=== PATIENT | male | born 1960 | race Caucasian/White ===

== ENCOUNTER 2018-01-18 22:07 | Inpatient (IN) | payer OTHER ==
[2018-01-19] MEDS ORDERED: LORAZEPAM 2 MG INJ IV
[2018-01-19] MEDS ORDERED: morphine 2 MG INJ IV
[2018-01-19] MEDS: hydrALAzine 20 MG INJ IV ×3 (00:36→23:45)
[2018-01-19 01:01] LABS: ADD MAN DIFF? NO
[2018-01-19 01:03] LABS: BASOPHIL # 0.1 10^3/ul (0.0-0.1); BASOPHILS % 0.7 % (0.0-2.0); EOSINOPHILS # 0.3 10^3/ul (0.0-0.5); EOSINOPHILS % 2.6 % (0.0-7.0); HEMATOCRIT 43.5 % (42.0-52.0); HEMOGLOBIN 14.5 g/dl (14.0-18.0); LYMPHOCYTES # 2.8 10^3/ul (0.8-2.9); LYMPHOCYTES % 25.7 % (15.0-51.0); MEAN CORPUSCULAR HEMOGLOBIN 28.4 pg (29.0-33.0); MEAN CORPUSCULAR HGB CONC 33.3 g/dl (32.0-37.0); MEAN CORPUSCULAR VOLUME 85.3 fl (82.0-101.0); MEAN PLATELET VOLUME 10.7 fl (7.4-10.4); MONOCYTE # 0.9 10^3/ul (0.3-0.9); MONOCYTES % 8.7 % (0.0-11.0); NEUTROPHIL # 6.7 10^3/ul (1.6-7.5); NEUTROPHILS % 62.1 % (39.0-77.0); PLATELET COUNT 234 10^3/UL (140-415); RED CELL DISTRIBUTION WIDTH 13.1 % (11.5-14.5)
[2018-01-19 01:03] LABS: WHITE BLOOD COUNT 10.7 10^3/ul (4.8-10.8)
[2018-01-19] MEDS: ACCU-CHEK XX (01:13)
[2018-01-19 01:40] LABS: ALANINE AMINOTRANSFERASE 30 IU/L (13-69); ALBUMIN 4.1 g/dl (3.3-4.9); ALBUMIN/GLOBULIN RATIO 1.24; ALKALINE PHOSPHATASE 119 IU/L (42-121); ANION GAP 15 (8-16); ASPARTATE AMINO TRANSFERASE 18 IU/L (15-46); BILIRUBIN,INDIRECT 0.4 mg/dl (0-1.1); BILIRUBIN,TOTAL 0.4 mg/dl (0.2-1.3); BLOOD UREA NITROGEN 5 mg/dl (7-20); CALCIUM 9.4 mg/dl (8.4-10.2); CARBON DIOXIDE 25 mmol/L (21-31); CHLORIDE 106 mmol/L (97-110); CHOL/HDL RATIO 5.6 RATIO; CHOLESTEROL 216 mg/dl (100-200); CREATININE 0.72 mg/dl (0.61-1.24); GLUCOSE 152 mg/dl (70-220); HDL CHOLESTEROL 38 mg/dl (28-71); LDL CHOLESTEROL,CALCULATED 148 mg/dl; PHOSPHORUS 3.5 mg/dl (2.5-4.9); POTASSIUM 3.6 mmol/L (3.5-5.1); SODIUM 142 mmol/L (135-144); TOTAL PROTEIN 7.4 g/dl (6.1-8.1); TRIGLYCERIDES 152 mg/dl (0-149)
[2018-01-19 02:49] LABS: HEMOGLOBIN A1C 8.9 % (0-5.9)
[2018-01-19] MEDS: CALCIUM CARBONATE 500 MG CHEW TAB PO ×3 (03:48→16:13)
[2018-01-19] MEDS: INSULIN ASPART [NOVOLOG] 3 ML PEN SC ×4 (08:25→21:50)
[2018-01-19] MEDS: LEVETIRACETAM 500 MG TAB PO ×3 (08:25→21:48)
[2018-01-19] MEDS: ONDANSETRON 4 MG INJ IV (12:17)
[2018-01-19] MEDS ORDERED: GLUCAGON 1 MG INJ IM ×2 (12:30)
[2018-01-19] MEDS ORDERED: DEXTROSE 50% 50 ML SYRINGE IV ×4 (12:30)
[2018-01-19] MEDS ORDERED: GLUCOSE GEL 15 GRAM TUBE BUCCAL ×2 (12:30)
[2018-01-19] MEDS ORDERED: GLUCOSE GEL 15 GRAM TUBE PO ×4 (12:30)
[2018-01-19] MEDS: PHENOBARBITAL 32.4 MG TAB PO ×2 (12:38→21:48)
[2018-01-19] MEDS: AMLODIPINE 10 MG TAB PO (12:40)
[2018-01-19 18:09] LABS: ADD UMIC NO; UR ASCORBIC ACID NEGATIVE (NEGATIVE); UR BILIRUBIN (Dip) NEGATIVE (NEGATIVE); UR BLOOD (Dip) NEGATIVE (NEGATIVE); UR CLARITY CLEAR (CLEAR); UR COLOR STRAW (YELLOW); UR GLUCOSE (Dip) 2+ mg/dL (NEGATIVE); UR KETONES (Dip) TRACE mg/dL (NEGATIVE); UR LEUKOCYTE ESTERASE (Dip) NEGATIVE Leu/ul (NEGATIVE); UR NITRITE (Dip) NEGATIVE (NEGATIVE); UR SPECIFIC GRAVITY (Dip) 1.004 (1.003-1.030); UR TOTAL PROTEIN (Dip) NEGATIVE (NEGATIVE); UR UROBILINOGEN (Dip) NEGATIVE (NEGATIVE)
[2018-01-19] MEDS ORDERED: INSULIN GLARGINE [LANtus] 3 ML PEN SC (20:00)
[2018-01-19] MEDS: ATORVASTATIN 20 MG TAB PO (21:48)
[2018-01-19] MEDS: MONTELUKAST 10 MG TAB PO (21:49)
[2018-01-19] MEDS: INSULIN GLARGINE [LANtus] 3 ML PEN SC (21:54)
[2018-01-20] MEDS: ACCU-CHEK XX (02:00)
[2018-01-20] MEDS: hydrALAzine 20 MG INJ IV (03:24)
[2018-01-20 06:07] LABS: ADD MAN DIFF? NO
[2018-01-20 06:08] LABS: WHITE BLOOD COUNT 13.4 10^3/ul (4.8-10.8)
[2018-01-20 06:08] LABS: BASOPHIL # 0.1 10^3/ul (0.0-0.1); BASOPHILS % 0.4 % (0.0-2.0); EOSINOPHILS # 0.2 10^3/ul (0.0-0.5); EOSINOPHILS % 1.6 % (0.0-7.0); HEMATOCRIT 45.8 % (42.0-52.0); HEMOGLOBIN 15.3 g/dl (14.0-18.0); LYMPHOCYTES # 2.7 10^3/ul (0.8-2.9); LYMPHOCYTES % 19.7 % (15.0-51.0); MEAN CORPUSCULAR HEMOGLOBIN 28.2 pg (29.0-33.0); MEAN CORPUSCULAR HGB CONC 33.4 g/dl (32.0-37.0); MEAN CORPUSCULAR VOLUME 84.3 fl (82.0-101.0); MONOCYTE # 1.2 10^3/ul (0.3-0.9); MONOCYTES % 8.6 % (0.0-11.0); NEUTROPHIL # 9.3 10^3/ul (1.6-7.5); NEUTROPHILS % 69.4 % (39.0-77.0); PLATELET COUNT 312 10^3/UL (140-415); RED BLOOD COUNT 5.43 10^6/ul (4.70-6.10); RED CELL DISTRIBUTION WIDTH 12.9 % (11.5-14.5)
[2018-01-20 06:41] LABS: ANION GAP 20 (8-16); BLOOD UREA NITROGEN 8 mg/dl (7-20); CALCIUM 9.6 mg/dl (8.4-10.2); CARBON DIOXIDE 20 mmol/L (21-31); CHLORIDE 102 mmol/L (97-110); CREATININE 0.75 mg/dl (0.61-1.24); GLUCOSE 211 mg/dl (70-220); MAGNESIUM 1.9 mg/dl (1.7-2.5); PHOSPHORUS 4.1 mg/dl (2.5-4.9); POTASSIUM 3.8 mmol/L (3.5-5.1); SODIUM 138 mmol/L (135-144)
[2018-01-20] MEDS: INSULIN ASPART [NOVOLOG] 3 ML PEN SC ×7 (08:04→20:20)
[2018-01-20] MEDS: PHENOBARBITAL 32.4 MG TAB PO ×2 (08:05→20:20)
[2018-01-20] MEDS: AMLODIPINE 10 MG TAB PO (08:06)
[2018-01-20] MEDS: LEVETIRACETAM 500 MG TAB PO ×2 (08:06→20:21)
[2018-01-20] MEDS: INSULIN GLARGINE [LANtus] 3 ML PEN SC (20:19)
[2018-01-20] MEDS: ATORVASTATIN 20 MG TAB PO (20:21)
[2018-01-20] MEDS: MONTELUKAST 10 MG TAB PO (20:21)
[2018-01-20] MEDS: CALCIUM CARBONATE 500 MG CHEW TAB PO (20:29)
[2018-01-20] MEDS: ALBUTEROL/IPRATROPIUM (NEB) 3 ML AMP HHN (23:30)
[2018-01-20] MEDS: METHYLPREDNISOLONE 125 MG INJ IV (23:39)
[2018-01-21] MEDS: ACCU-CHEK XX (02:00)
[2018-01-21 02:42] LABS: PHENOBARBITAL <5.0 mg/L (15.0-40.0)
[2018-01-21] MEDS: INSULIN ASPART [NOVOLOG] 3 ML PEN SC ×7 (08:29→20:17)
[2018-01-21] MEDS: AMLODIPINE 10 MG TAB PO (08:32)
[2018-01-21] MEDS: LEVETIRACETAM 500 MG TAB PO ×2 (08:32→20:16)
[2018-01-21] MEDS: PHENOBARBITAL 32.4 MG TAB PO ×2 (08:32→20:16)
[2018-01-21] MEDS: ATORVASTATIN 20 MG TAB PO (20:16)
[2018-01-21] MEDS: MONTELUKAST 10 MG TAB PO (20:16)
[2018-01-21] MEDS: INSULIN GLARGINE [LANtus] 3 ML PEN SC (20:18)
[2018-01-22] MEDS: ACCU-CHEK XX (02:00)
[2018-01-22 07:05] LABS: BARBITURATES Positive (NEGATIVE)
[2018-01-22 07:11] LABS: AMPHETAMINE/METHAMPHETAMINE Negative (NEGATIVE); BENZODIAZEPINES Negative (NEGATIVE); CANNABINOIDS Positive (NEGATIVE); COCAINE Negative (NEGATIVE); OPIATES Negative (NEGATIVE)
[2018-01-22] MEDS: PHENOBARBITAL 32.4 MG TAB PO ×2 (08:10→20:21)
[2018-01-22] MEDS: AMLODIPINE 10 MG TAB PO (08:10)
[2018-01-22] MEDS: LEVETIRACETAM 500 MG TAB PO ×2 (08:10→20:21)
[2018-01-22] MEDS: INSULIN ASPART [NOVOLOG] 3 ML PEN SC ×7 (08:11→20:25)
[2018-01-22] MEDS: LINAGLIPTIN 5 MG TABLET PO (10:08)
[2018-01-22] MEDS ORDERED: morphine LIQ (10 MG/5 ML) CUP PO (15:00)
[2018-01-22] MEDS: ALBUTEROL/IPRATROPIUM (NEB) 3 ML AMP HHN (16:15)
[2018-01-22] MEDS: ATORVASTATIN 20 MG TAB PO (20:21)
[2018-01-22] MEDS: MONTELUKAST 10 MG TAB PO (20:21)
[2018-01-22] MEDS: INSULIN GLARGINE [LANtus] 3 ML PEN SC (20:26)
[2018-01-23] MEDS: ACCU-CHEK XX (02:45)
[2018-01-23] MEDS: PHENOBARBITAL 32.4 MG TAB PO (08:00)
[2018-01-23] MEDS: INSULIN ASPART [NOVOLOG] 3 ML PEN SC ×4 (08:00→11:59)
[2018-01-23] MEDS: LEVETIRACETAM 500 MG TAB PO (08:01)
[2018-01-23] MEDS: AMLODIPINE 10 MG TAB PO (08:02)
[2018-01-23] MEDS: LINAGLIPTIN 5 MG TABLET PO (08:02)
== END 2018-01-23 12:57 | disposition home or self-care (01) | DRG 101 ==
LOC: PP2 22:07
PROVIDERS: Internal Medicine
DX: R56.1 Post traumatic seizures (principal); I16.0 Hypertensive urgency; J44.9 Chronic obstructive pulmonary disease, unspecified; E78.5 Hyperlipidemia, unspecified; E11.9 Type 2 diabetes mellitus without complications; H54.40 Blindness, one eye, unspecified eye; I10 Essential (primary) hypertension; Z79.4 Long term (current) use of insulin; Z87.820 Personal history of traumatic brain injury
CPT/HCPCS: 70551; 71045; 80048; 80053; 80061; 80184; 80307; 81003; 82962; 83036; 83735; 84100; 85025; 87081; 94640; 94664; 97110; 97162; 97165

== ENCOUNTER 2018-02-08 15:04 | Emergency (ER) | payer OTHER ==
[2018-02-08] MEDS: ACETAMINOPHEN 500 MG TAB PO (18:34)
== END 2018-02-08 21:45 | disposition home or self-care (01) ==
LOC: E/R 21:45
DX: S09.90XA Unspecified injury of head, initial encounter (principal); I10 Essential (primary) hypertension; R51 Headache; Y08.89XA Assault by other specified means, initial encounter; Z79.84 Long term (current) use of oral hypoglycemic drugs
CPT/HCPCS: 70450; 99284-25

== ENCOUNTER 2018-03-20 15:03 | Emergency (ER) | payer OTHER ==
[2018-03-20 15:47] LABS: ADD MAN DIFF? NO
[2018-03-20 15:51] LABS: WHITE BLOOD COUNT 9.3 10^3/ul (4.8-10.8)
[2018-03-20 15:51] LABS: BASOPHIL # 0.1 10^3/ul (0.0-0.1); BASOPHILS % 0.6 % (0.0-2.0); EOSINOPHILS # 0.2 10^3/ul (0.0-0.5); EOSINOPHILS % 2.6 % (0.0-7.0); HEMATOCRIT 38.7 % (42.0-52.0); HEMOGLOBIN 13.3 g/dl (14.0-18.0); LYMPHOCYTES # 2.3 10^3/ul (0.8-2.9); LYMPHOCYTES % 24.5 % (15.0-51.0); MEAN CORPUSCULAR HGB CONC 34.4 g/dl (32.0-37.0); MEAN CORPUSCULAR VOLUME 84.3 fl (82.0-101.0); MEAN PLATELET VOLUME 10.9 fl (7.4-10.4); MONOCYTE # 0.9 10^3/ul (0.3-0.9); MONOCYTES % 9.1 % (0.0-11.0); NEUTROPHIL # 5.8 10^3/ul (1.6-7.5); NEUTROPHILS % 62.8 % (39.0-77.0); PLATELET COUNT 244 10^3/UL (140-415); RED BLOOD COUNT 4.59 10^6/ul (4.70-6.10); RED CELL DISTRIBUTION WIDTH 13.2 % (11.5-14.5)
[2018-03-20] MEDS: SOD CHLORIDE 0.9% 1,000 ML IV (15:58)
[2018-03-20] MEDS: ACETAMINOPHEN 500 MG TAB PO (16:02)
[2018-03-20 16:15] LABS: ANION GAP 12 (8-16); BLOOD UREA NITROGEN 10 mg/dl (7-20); CALCIUM 9.2 mg/dl (8.4-10.2); CARBON DIOXIDE 23 mmol/L (21-31); CHLORIDE 106 mmol/L (97-110); CREATININE 0.91 mg/dl (0.61-1.24); GLUCOSE 175 mg/dl (70-220); POTASSIUM 3.9 mmol/L (3.5-5.1); SODIUM 137 mmol/L (135-144)
[2018-03-20 16:26] LABS: TROPONIN-I < 0.010 ng/ml (0.000-0.120)
[2018-03-20] MEDS: ALBUTEROL HFA 8 GM INHALER INH (17:03)
== END 2018-03-20 18:16 | disposition home or self-care (01) ==
LOC: E/R 15:03
DX: S09.90XA Unspecified injury of head, initial encounter (principal); I10 Essential (primary) hypertension; R55 Syncope and collapse; W01.198A Fall on same level from slipping, tripping and stumbling with subsequent striking against other object, initial encounter; Y92.9 Unspecified place or not applicable; Z79.84 Long term (current) use of oral hypoglycemic drugs
CPT/HCPCS: 36415; 70450; 71045; 80048; 82962; 84484; 85025; 93005; 99285-25

== ENCOUNTER 2018-10-17 12:09 | Inpatient (IN) | payer OTHER ==
[2018-10-17] MEDS ORDERED: LORAZEPAM 2 MG INJ IV (14:00)
[2018-10-17] MEDS ORDERED: ONDANSETRON 4 MG INJ IV (14:00)
[2018-10-17] MEDS ORDERED: NACL 0.9% 3 ML SYG IV (14:00)
[2018-10-17] MEDS ORDERED: GLUCOSE GEL 15 GRAM TUBE BUCCAL (15:00)
[2018-10-17] MEDS ORDERED: GLUCOSE GEL 15 GRAM TUBE PO ×2 (15:00)
[2018-10-17] MEDS ORDERED: GLUCAGON 1 MG INJ IM (15:00)
[2018-10-17] MEDS ORDERED: DEXTROSE 50% 50 ML SYRINGE IV ×2 (15:00)
[2018-10-17] MEDS: LEVETIRACETAM 1000 MG (PMX) 100 ML IVPB (16:10)
[2018-10-17] MEDS: traMADol 50 MG TAB PO ×2 (16:22→23:37)
[2018-10-17 16:34] LABS: ADD MAN DIFF? NO
[2018-10-17 16:39] LABS: BASOPHIL # 0.1 10^3/ul (0.0-0.1); BASOPHILS % 0.5 % (0.0-2.0); EOSINOPHILS # 0.2 10^3/ul (0.0-0.5); EOSINOPHILS % 1.9 % (0.0-7.0); HEMATOCRIT 40.3 % (42.0-52.0); HEMOGLOBIN 13.7 g/dl (14.0-18.0); LYMPHOCYTES # 2.2 10^3/ul (0.8-2.9); LYMPHOCYTES % 21.8 % (15.0-51.0); MEAN CORPUSCULAR HEMOGLOBIN 27.7 pg (29.0-33.0); MEAN CORPUSCULAR VOLUME 81.4 fl (82.0-101.0); MEAN PLATELET VOLUME 10.7 fl (7.4-10.4); MONOCYTE # 0.7 10^3/ul (0.3-0.9); NEUTROPHIL # 6.8 10^3/ul (1.6-7.5); NEUTROPHILS % 68.5 % (39.0-77.0); PLATELET COUNT 254 10^3/UL (140-415); RED BLOOD COUNT 4.95 10^6/ul (4.70-6.10); RED CELL DISTRIBUTION WIDTH 13.8 % (11.5-14.5)
[2018-10-17 16:39] LABS: WHITE BLOOD COUNT 9.9 10^3/ul (4.8-10.8)
[2018-10-17 16:48] LABS: HEMOGLOBIN A1C 8.3 % (0-5.9)
[2018-10-17 17:13] LABS: FREE T4 (FREE THYROXINE) 1.16 ng/dl (0.64-1.79)
[2018-10-17 18:30] LABS: AMPHETAMINE/METHAMPHETAMINE Negative (NEGATIVE); BARBITURATES Negative (NEGATIVE); BENZODIAZEPINES Negative (NEGATIVE); CANNABINOIDS Positive (NEGATIVE); COCAINE Negative (NEGATIVE); OPIATES Negative (NEGATIVE)
[2018-10-17] MEDS: INSULIN ASPART [NOVOLOG] 3 ML PEN SC ×3 (19:00→20:58)
[2018-10-17 19:41] LABS: ALBUMIN/GLOBULIN RATIO 1.39; ANION GAP 12 (5-13); BILIRUBIN,TOTAL 0.5 mg/dl (0.2-1.3); Estimated GFR > 60 mL/min (>60)
[2018-10-17 19:43] LABS: ALANINE AMINOTRANSFERASE 25 IU/L (13-69); ALBUMIN 3.9 g/dl (3.3-4.9); ALKALINE PHOSPHATASE 99 IU/L (42-121); ASPARTATE AMINO TRANSFERASE 18 IU/L (15-46); BILIRUBIN,INDIRECT 0.5 mg/dl (0-1.1); BLOOD UREA NITROGEN 7 mg/dl (7-20); CALCIUM 9.4 mg/dl (8.4-10.2); CARBON DIOXIDE 24 mmol/L (21-31); CHLORIDE 102 mmol/L (97-110); CREATININE 0.76 mg/dl (0.61-1.24); GLUCOSE 173 mg/dl (70-220); MAGNESIUM 2.1 mg/dl (1.7-2.5); PHOSPHORUS 3.2 mg/dl (2.5-4.9); POTASSIUM 3.6 mmol/L (3.5-5.1); SODIUM 138 mmol/L (135-144); TOTAL PROTEIN 6.7 g/dl (6.1-8.1)
[2018-10-17] MEDS: INSULIN GLARGINE [LANTus] (100 UNITS/ML) SYG SC ×2 (20:00→20:56)
[2018-10-17 20:12] LABS: THYROID STIMULATING HORMONE 0.513 MIU/L (0.465-4.680)
[2018-10-17] MEDS: ATORVASTATIN 20 MG TAB PO (20:41)
[2018-10-17] MEDS: PHENOBARBITAL 32.4 MG TAB PO (20:41)
[2018-10-18] MEDS: LEVETIRACETAM 1000 MG (PMX) 100 ML IVPB ×3 (00:50→21:57)
[2018-10-18 04:47] LABS: PHENOBARBITAL <5.0 mg/L (15.0-40.0); THEOPHYLLINE 2.6 mg/L (10.0-20.0)
[2018-10-18 07:21] LABS: ADD MAN DIFF? NO
[2018-10-18 07:28] LABS: BASOPHIL # 0.1 10^3/ul (0.0-0.1); BASOPHILS % 0.5 % (0.0-2.0); EOSINOPHILS # 0.3 10^3/ul (0.0-0.5); EOSINOPHILS % 2.4 % (0.0-7.0); HEMATOCRIT 40.8 % (42.0-52.0); HEMOGLOBIN 13.5 g/dl (14.0-18.0); LYMPHOCYTES # 2.6 10^3/ul (0.8-2.9); MEAN CORPUSCULAR HEMOGLOBIN 27.8 pg (29.0-33.0); MEAN CORPUSCULAR HGB CONC 33.1 g/dl (32.0-37.0); MEAN CORPUSCULAR VOLUME 84.1 fl (82.0-101.0); MONOCYTE # 0.7 10^3/ul (0.3-0.9); MONOCYTES % 6.8 % (0.0-11.0); NEUTROPHIL # 6.7 10^3/ul (1.6-7.5); NEUTROPHILS % 64.9 % (39.0-77.0); PLATELET COUNT 237 10^3/UL (140-415); RED BLOOD COUNT 4.85 10^6/ul (4.70-6.10); RED CELL DISTRIBUTION WIDTH 13.6 % (11.5-14.5)
[2018-10-18 07:28] LABS: WHITE BLOOD COUNT 10.3 10^3/ul (4.8-10.8)
[2018-10-18 07:48] LABS: INR 1.03; PROTIME 13.6 Sec (11.9-14.9); PT RATIO 1.1
[2018-10-18 08:00] LABS: ANION GAP 9 (5-13); BLOOD UREA NITROGEN 8 mg/dl (7-20); CALCIUM 9.3 mg/dl (8.4-10.2); CARBON DIOXIDE 24 mmol/L (21-31); CHLORIDE 106 mmol/L (97-110); CREATININE 0.66 mg/dl (0.61-1.24); Estimated GFR > 60 mL/min (>60); GLUCOSE 156 mg/dl (70-220); POTASSIUM 3.6 mmol/L (3.5-5.1); SODIUM 139 mmol/L (135-144)
[2018-10-18 08:02] LABS: PHOSPHORUS 4.1 mg/dl (2.5-4.9)
[2018-10-18 08:02] LABS: CHOL/HDL RATIO 3.3 RATIO; CHOLESTEROL 123 mg/dl (100-200); HDL CHOLESTEROL 37 mg/dl (28-71); LDL CHOLESTEROL,CALCULATED 64 mg/dl; MAGNESIUM 2.1 mg/dl (1.7-2.5); TRIGLYCERIDES 111 mg/dl (0-149)
[2018-10-18] MEDS: INSULIN ASPART [NOVOLOG] 3 ML PEN SC ×7 (08:43→21:00)
[2018-10-18] MEDS: PHENOBARBITAL 32.4 MG TAB PO ×2 (08:46→20:59)
[2018-10-18] MEDS: ENOXAPARIN 40 MG/0.4 ML SYG SC (08:47)
[2018-10-18] MEDS: BENAZEPRIL 10 MG TAB PO (08:48)
[2018-10-18] MEDS: traMADol 50 MG TAB PO ×2 (09:21→22:44)
[2018-10-18] MEDS: ARFORMOTEROL TARTRATE 15MCG/2 ML AMP NEB ×2 (12:30→20:06)
[2018-10-18] MEDS: THEOPHYLLINE (SR) 200 MG CAPSR PO (12:40)
[2018-10-18] MEDS ORDERED: THEOPHYLLINE (SR) 400 MG TAB.ER.24HR PO (13:00)
[2018-10-18] MEDS: ATORVASTATIN 20 MG TAB PO (20:59)
[2018-10-18] MEDS: INSULIN GLARGINE [LANTus] (100 UNITS/ML) SYG SC (20:59)
[2018-10-18] MEDS: MONTELUKAST 10 MG TAB PO (20:59)
[2018-10-19] MEDS: traMADol 50 MG TAB PO ×2 (04:39→18:24)
[2018-10-19] MEDS: AL HYDROX/MG HYDROX/SIMETH 30 ML CUP PO (05:57)
[2018-10-19 06:24] LABS: ADD MAN DIFF? NO
[2018-10-19 06:28] LABS: WHITE BLOOD COUNT 9.2 10^3/ul (4.8-10.8)
[2018-10-19 06:28] LABS: BASOPHIL # 0.1 10^3/ul (0.0-0.1); BASOPHILS % 0.9 % (0.0-2.0); EOSINOPHILS # 0.3 10^3/ul (0.0-0.5); EOSINOPHILS % 2.8 % (0.0-7.0); HEMATOCRIT 41.7 % (42.0-52.0); HEMOGLOBIN 13.8 g/dl (14.0-18.0); LYMPHOCYTES # 2.6 10^3/ul (0.8-2.9); LYMPHOCYTES % 27.8 % (15.0-51.0); MEAN CORPUSCULAR HEMOGLOBIN 27.2 pg (29.0-33.0); MEAN CORPUSCULAR HGB CONC 33.1 g/dl (32.0-37.0); MEAN CORPUSCULAR VOLUME 82.1 fl (82.0-101.0); MEAN PLATELET VOLUME 10.7 fl (7.4-10.4); MONOCYTE # 0.8 10^3/ul (0.3-0.9); MONOCYTES % 8.5 % (0.0-11.0); NEUTROPHIL # 5.5 10^3/ul (1.6-7.5); NEUTROPHILS % 59.7 % (39.0-77.0); PLATELET COUNT 257 10^3/UL (140-415); RED BLOOD COUNT 5.08 10^6/ul (4.70-6.10); RED CELL DISTRIBUTION WIDTH 13.6 % (11.5-14.5)
[2018-10-19] MEDS: PANTOPRAZOLE (EC) 40 MG TAB PO (06:39)
[2018-10-19 06:48] LABS: ANION GAP 10 (5-13); BLOOD UREA NITROGEN 10 mg/dl (7-20); CALCIUM 9.3 mg/dl (8.4-10.2); CARBON DIOXIDE 24 mmol/L (21-31); CHLORIDE 105 mmol/L (97-110); CREATININE 0.73 mg/dl (0.61-1.24); Estimated GFR > 60 mL/min (>60); GLUCOSE 126 mg/dl (70-220); MAGNESIUM 2.1 mg/dl (1.7-2.5); POTASSIUM 3.9 mmol/L (3.5-5.1); SODIUM 139 mmol/L (135-144)
[2018-10-19 06:48] LABS: PHOSPHORUS 4.2 mg/dl (2.5-4.9)
[2018-10-19] MEDS: ARFORMOTEROL TARTRATE 15MCG/2 ML AMP NEB ×2 (07:49→20:04)
[2018-10-19] MEDS: INSULIN ASPART [NOVOLOG] 3 ML PEN SC ×7 (08:00→20:38)
[2018-10-19] MEDS: LEVETIRACETAM 1000 MG (PMX) 100 ML IVPB (08:16)
[2018-10-19] MEDS: BENAZEPRIL 10 MG TAB PO (08:17)
[2018-10-19] MEDS: THEOPHYLLINE (SR) 200 MG CAPSR PO (08:18)
[2018-10-19] MEDS: PHENOBARBITAL 32.4 MG TAB PO ×2 (08:18→20:35)
[2018-10-19] MEDS: ENOXAPARIN 40 MG/0.4 ML SYG SC (08:21)
[2018-10-19] MEDS: metFORMIN 500 MG TAB PO (18:24)
[2018-10-19] MEDS: LEVETIRACETAM 750 MG TAB PO (20:35)
[2018-10-19] MEDS: ATORVASTATIN 20 MG TAB PO (20:36)
[2018-10-19] MEDS: MONTELUKAST 10 MG TAB PO (20:36)
[2018-10-19] MEDS: ENOXAPARIN 100 MG/ML SYG SC (20:37)
[2018-10-19] MEDS: INSULIN GLARGINE [LANTus] (100 UNITS/ML) SYG SC (20:38)
[2018-10-19] MEDS ORDERED: LEVETIRACETAM 500 MG TAB PO (21:00)
[2018-10-20] MEDS: traMADol 50 MG TAB PO ×2 (01:44→10:33)
[2018-10-20] MEDS: PANTOPRAZOLE (EC) 40 MG TAB PO (05:18)
[2018-10-20] MEDS: ACETAMINOPHEN 325 MG TAB PO (05:18)
[2018-10-20] MEDS: INSULIN ASPART [NOVOLOG] 3 ML PEN SC ×6 (08:00→17:37)
[2018-10-20] MEDS: LEVETIRACETAM 750 MG TAB PO (08:18)
[2018-10-20] MEDS: ENOXAPARIN 100 MG/ML SYG SC (08:19)
[2018-10-20] MEDS: PHENOBARBITAL 32.4 MG TAB PO (08:22)
[2018-10-20] MEDS: BENAZEPRIL 10 MG TAB PO (08:22)
[2018-10-20] MEDS: metFORMIN 500 MG TAB PO (08:24)
[2018-10-20] MEDS: ARFORMOTEROL TARTRATE 15MCG/2 ML AMP NEB (09:59)
[2018-10-20] MEDS: THEOPHYLLINE (SR) 200 MG CAPSR PO (12:02)
[2018-10-20] MEDS: IOHEXOL 100 ML (12:44)
[2018-10-20] MEDS: SOD CHLORIDE 0.9% 100 ML (12:44)
== END 2018-10-20 17:50 | disposition home or self-care (01) | DRG 101 ==
LOC: PP2 12:09
DX: G40.909 Epilepsy, unspecified, not intractable, without status epilepticus (principal); I82.512 Chronic embolism and thrombosis of left femoral vein; I82.532 Chronic embolism and thrombosis of left popliteal vein; E78.5 Hyperlipidemia, unspecified; J44.9 Chronic obstructive pulmonary disease, unspecified; E11.8 Type 2 diabetes mellitus with unspecified complications; I10 Essential (primary) hypertension; R53.1 Weakness; F17.200 Nicotine dependence, unspecified, uncomplicated; H54.40 Blindness, one eye, unspecified eye
CPT/HCPCS: 71275; 73510; 80048; 80053; 80061; 80184; 80198; 80307; 82962; 83036; 83735; 84100; 84439; 84443; 85025; 85610; 85730; 87081; 93971; 94640; 94664; 97116; 97162; 97530